=== PATIENT | male | born 1990 ===

== ENCOUNTER 2017-02-27 20:09 | Emergency (ER) | payer SELFPAY ==
[2017-02-27 20:09] VITALS: BMI 26.6
[2017-02-27 20:25] VITALS: BP 120/86; PULSE 60; RESP 16; TEMP 98.2; O2SAT 96
--- NOTE | 2017-02-27 20:33 | ED PDOC ---
HPI: Abdomen Time Seen by Provider: 02/27/17 20:30 Chief Complaint (Nursing): Abdominal Pain Chief Complaint (Provider): abdominal pain History Per: Patient Additional Complaint(s): 27 year old male with no past medical history presents with abdominal pain and nausea for the past 2 days. Patient denies any vomiting, diarrhea or constipation, no fever or chills. Patient is tolerating liquids and solids. He rates pain as 6/10 mostly to the epigastric region. Patient states that pain seems constant, it is not any worse or better before or after meals. Past Medical History Reviewed: Historical Data, Nursing Documentation, Vital Signs Vital Signs: Last Vital Signs Temp 98.2 F 02/27/17 20:22 Pulse 60 02/27/17 20:22 Resp 16 02/27/17 20:22 BP 120/86 02/27/17 20:22 Pulse Ox 96 02/27/17 20:52 - Medical History PMH: No Chronic Diseases - Surgical History Surgical History: Appendectomy Other surgeries: right knee surgery - Family History Family History: States: No Known Family Hx - Living Arrangements Living Arrangements: With Family - Social History Current smoker - smoking cessation education provided: No Alcohol: Social Drugs: Denies - Home Medications Home Medications: Ambulatory Orders Medication Instructions Recorded Famotidine [Pepcid] 20 mg PO DAILY #30 tab 02/28/17 - Allergies Allergies/Adverse Reactions: Allergies Allergy/AdvReac Type Severity Reaction Status Date / Time No Known Allergies Allergy Verified 11/27/15 11:46 Review of Systems ROS Statement: Except As Marked, All Systems Reviewed And Found Negative Constitutional: Negative for: Fever, Chills Cardiovascular: Negative for: Chest Pain Respiratory: Negative for: Cough Gastrointestinal: Positive for: Nausea, Abdominal Pain. Negative for: Vomiting , Diarrhea, Constipation Genitourinary Male: Negative for: Dysuria, Hematuria, Penile Discharge Physical Exam - Reviewed Nursing Documentation Reviewed: Yes Vital Signs Reviewed: Yes - Physical Exam Appears: Positive for: Well, Non-toxic, No Acute Distress Skin: Negative for: Rash Eye Exam: Positive for: Normal appearance Cardiovascular/Chest: Positive for: Regular Rate, Rhythm Respiratory: Positive for: Normal Breath Sounds. Negative for: Respiratory Distress Gastrointestinal/Abdominal: Positive for: Bowel Sounds (normoactive in all 4 quadrants), Soft, Tenderness (epigastric region). Negative for: Distended, Guarding, Rebound, Hernia Back: Negative for: L CVA Tenderness, R CVA Tenderness Extremity: Negative for: Pedal Edema Neurologic/Psych: Positive for: Alert, Oriented - Laboratory Results Result Diagrams: 02/27/17 21:05 02/27/17 21:05 Urine dip results: Negative for: Leukocyte Esterase, Blood, Nitrate, Ketones, Glucose, Bilirubin, Protein - ECG O2 Sat by Pulse Oximetry: 96 Pulse Ox Interpretation: Normal - Other Rad Abd US X-Ray: Read By Radiologist X-Ray Interpretation: no acute finding Medical Decision Making Medical Decision Makin27 year old with abdominal pain Plan: CBC CMP Urine dip Lipase Abd US IVF IV zofran PO bentyl Patient is aware of all diagnostic testing results. He feel better after meds given in ED. Prescription given for Pepcid. Patient was referred to clinic for follow-up Disposition - Clinical Impression Clinical Impression: Gastritis - Patient ED Disposition Is Patient to be Admitted: No Counseled Patient/Family Regarding: Studies Performed, Diagnosis, Need For Followup, Rx Given - Disposition Referrals: [facility], [facility] [Outside] Disposition: Routine/Home Disposition Time: 01:15 Condition: STABLE Additional Instructions: Follow dietary instructions. Take rx meds as directed. Follow up in 2-3 days with clinic. Prescriptions: Famotidine [Pepcid] 20 mg PO DAILY #30 tab Instructions: Gastritis (ED), Diet for Ulcers and Gastritis (ED) Print Language: SINHALA
[2017-02-27] MEDS ORDERED: Sodium Chloride 0.9% 1,000 ML IV STA (20:49)
[2017-02-27 21:18] LABS: ALB/GLOB RATIO 1.6 (1.0-2.1); ALKALINE PHOSPHATASE 72 U/L (38-126); ALT/SGPT 28 U/L (21-72); AST/SGOT 18 U/L (17-59); BILIRUBIN,TOTAL 0.3 mg/dl (0.2-1.3); BLOOD UREA NITROGEN 18 mg/dl (9-20); CARBON DIOXIDE 27 mmol/L (22-30); CHLORIDE 102 mmol/L (98-107); GFR AFRICAN-AMERICAN > 60; GLUCOSE,RANDOM 86 mg/dL (75-110); LIPASE 76 U/L (23-300); POTASSIUM 3.9 MMOL/L (3.6-5.0); SODIUM 138 mmol/l (132-148); TOTAL PROTEIN 7.1 G/DL (6.3-8.2)
[2017-02-27 21:24] LABS: BASO % 0.3 % (0.0-2.0); EOS # 0.1 K/uL (0.0-0.7); EOS % 1.1 % (0.0-4.0); LYMPH # 1.7 K/uL (1.0-4.3); LYMPH % 27.1 % (20.0-40.0); MEAN CELL VOLUME 92.6 fl (80.0-94.0); MEAN CORPUSCULAR HEMOGLOBIN 31.8 pg (27.0-31.0); MEAN CORPUSCULAR HGB CONC 34.4 g/dL (33.0-37.0); MEAN PLATELET VOLUME 9.1 fl (7.2-11.7); MONO # 0.5 K/uL (0.0-0.8); MONO % 8.5 % (0.0-10.0); NRBC % 0.3 % (0.0-0.0); RED CELL DISTRIBUTION WIDTH 13.8 % (11.5-14.5); WHITE BLOOD COUNT 6.3 K/uL (4.8-10.8)
--- NOTE | 2017-02-28 01:01 | US ---
EXAM: US Abdomen Complete CLINICAL HISTORY: 27 years old, male; Pain; Abdominal pain; Epigastric; Additional info: Epigastric and upper abd pain TECHNIQUE: Real-time ultrasound of the abdomen (complete) with image documentation. COMPARISON: No relevant prior studies available. FINDINGS: Liver: Normal echogenicity. No mass. No intrahepatic bile duct dilatation. Gallbladder: No gallstones. No wall thickening. No pericholecystic fluid. No sonographic Bullock's sign. Common bile duct: No dilatation. No stones. Pancreas: Unremarkable as visualized. Kidneys: Normal echogenicity. No hydronephrosis. Spleen: No splenomegaly. Aorta: Unremarkable. No aneurysm. Inferior vena cava: Unremarkable. Free fluid: No significant free fluid. IMPRESSION: 1.No acute findings. 2.Non-acute findings are described above.
== END 2017-02-28 01:27 | disposition home or self-care (01) ==
LOC: H.ER 20:09
DX: K29.70 Gastritis, unspecified, without bleeding (principal); R11.0 Nausea